=== PATIENT | female | born 1965 | race Caucasian/White ===

== ENCOUNTER 2018-01-04 13:22 | Emergency (ER) | payer OTHER ==
[2018-01-04 13:48] VITALS: BP 135/91; PULSE 79; RESP 18; TEMP 98.8; O2SAT 97
--- NOTE | 2018-01-04 14:08 | C.PDOC ---
History Of Present Illness 52 y/o female presents to the ED complaining of an itchy peeling rash to the bilateral hands for approximately 1 week. Patient states she tried OTC hydrocortisone cream at home without relief. She denies any PMHx, fever/chills , cough, runny nose, sore throat, known allergens. Patient does admit to similar rash on feet that in fungal, but never had it on hands. Time Seen by Provider: 01/04/18 13:41 Chief Complaint (Nursing): Abnormal Skin Integrity History Per: Patient History/Exam Limitations: no limitations Onset/Duration Of Symptoms: Days Current Symptoms Are (Timing): Still Present Location Of Injury: Right: Hand, Left: Hand Quality Of Symptoms: Itching Severity: Mild Past Medical History Reviewed: Historical Data, Nursing Documentation, Vital Signs Vital Signs: Last Vital Signs Temp 98.8 F 01/04/18 13:42 Pulse 79 01/04/18 13:42 Resp 18 01/04/18 13:42 BP 135/91 H 01/04/18 13:42 Pulse Ox 97 01/04/18 16:39 - Medical History PMH: No Chronic Diseases Surgical History: Cholecystectomy Family History: States: No Known Family Hx - Social History Hx Alcohol Use: Yes Hx Substance Use: No - Immunization History Hx Tetanus Toxoid Vaccination: No Hx Influenza Vaccination: No Hx Pneumococcal Vaccination: No Review Of Systems Constitutional: Negative for: Fever, Chills ENT: Negative for: Nose Congestion, Throat Pain Respiratory: Negative for: Cough Skin: Positive for: Rash (to B/L hands) Neurological: Negative for: Weakness, Numbness Physical Exam - Physical Exam Appears: Well, Non-toxic, No Acute Distress Skin: Dry, Rash (Peeling scaley rash with scattered discoloration patches on lateral aspect of digit B/L hands; no burrows, no vesicular lesions. Appears fungal) Head: Normacephalic Eye(s): bilateral: Normal Inspection Oral Mucosa: Moist Neck: Supple Cardiovascular: Rhythm Regular Respiratory: Normal Breath Sounds, No Rales, No Rhonchi, No Wheezing Extremity: Bilateral: Atraumatic, Normal ROM Neurological/Psych: Oriented x3, Normal Sensation ED Course And Treatment O2 Sat by Pulse Oximetry: 97 (RA) Pulse Ox Interpretation: Normal Progress Note: Patient given PO Claritin in the ED for itching, and Rx for topical antifungal cream. She was instructed to follow up with PMD/clinic in 1- 2 days. She understands she shoul return to ED if symptoms worsen. Disposition Counseled Patient/Family Regarding: Diagnosis, Need For Followup, Rx Given - Disposition Referrals: Cesar Barragan MD [Medical Doctor] - Disposition: HOME/ ROUTINE Disposition Time: 14:10 Condition: STABLE Additional Instructions: FOLLOW UP WITH YOUR DOCTOR IN 1-2 DAYS KEEP USING MEDICATION, FUNGAL INFECTIONS TAKE SEVERAL WEEKS TO CLEAR Prescriptions: Ketoconazole 2% Cr [Nizoral] 1 appl EXT BID #1 tube Loratadine [Claritin] 10 mg PO DAILY #15 tab Forms: [employer] (Turkish) Print Language: [place] KORE[place] - POA Present On Arrival: None - Clinical Impression Clinical Impression: Fungal infection - Scribe Statement The provider has reviewed the documentation as recorded by the Scribe (Yvonne Frost) Provider Attestation: All medical record entries made by the Scribe were at my direction and personally dictated by me. I have reviewed the chart and agree that the record accurately reflects my personal performance of the history, physical exam, medical decision making, and the department course for this patient. I have also personally directed, reviewed, and agree with the discharge instructions and disposition.
== END 2018-01-04 14:33 | disposition home or self-care (01) ==
LOC: C.ER 13:22
DX: B48.8 Other specified mycoses (principal)